=== PATIENT | male | born 1970 | race Caucasian/White ===

== ENCOUNTER → 2020-11-14 08:20 | Outpatient (CLI) | payer BC, SELFPAY ==
--- NOTE | ~2020-11-14 | XR_ITS ---
EXAMINATION: XR ribs BI 3V w CXR 2V EXAM DATE: 11/14/2020 08:33 INDICATION: Twisted, sneezed, felt rib pain on left side. Cough. TECHNIQUE: Frontal projection of the upper left ribs, frontal projection of the lower left ribs, obli que projection of the left ribs. Frontal projection of the upper right ribs, frontal projection of t he lower right ribs, oblique projection of the right ribs, frontal and lateral chest x-ray(s) for int erpretation. There is no prior study for comparison. FINDINGS: There are no displaced acute rib fractures identified. No confluent consolidation, pneumo thorax or pleural effusion suspected. Cardiomediastinal silhouette is normal. IMPRESSION: Unremarkable rib, chest x-ray exam. Reviewed, dictated and finalized at location [facility]
== END ==
PROVIDERS: PCP Family Medicine; Visit Provider Nurse Practitioner Family
DX: R05 Cough (principal); R10.9 Unspecified abdominal pain
CPT/HCPCS: 71046; 71110

== ENCOUNTER 2021-08-26 00:51 | Day surgery (SDC) | payer BC, SELFPAY ==
[2021-08-19 14:53] VITALS: BMI 28.5
--- NOTE | 2021-08-23 14:33 | PM.HPGS ---
History of Present Illness History of Present Illness Consent: Risks, benefits, and alternatives have been discussed and questions answered. Patient agrees to proceed with procedure. Chief complaint: hx of colon polyps Narrative: Armand Luna is a 50 year old male referred for colon cancer screening Review of Systems Review of Systems: All systems reviewed & are unremarkable except as noted in HPI and below PMFSH Past Medical History Medical History Benign hypertension BMI 28.0-28.9,adult Encounter for screening colonoscopy Gastro-esophageal reflux disease without esophagitis Mixed hyperlipidemia Family History Family History Sibling Family history of diabetes mellitus in first degree relative Family history of type 2 diabetes mellitus Mother Family history of malignant neoplasm of ovary Father Malignant neoplasm of prostate Sibling Diabetes mellitus Social History Social History Smoking packs per day: 1 Smoking cigarettes per day: 20.0 Years smoked: 30 Smoking pack-years: 30.00 Smoking status: Current every day smoker Tobacco type: cigarettes Second hand tobacco smoke exposure: No Alcohol intake: current Substance use: never Substance use type: does not use Living arrangements: with family Additional occupation/education comments: [employer] Gender identity (if verbalized by the patient): Male Spiritual care concerns: No Meds Home Medications and Allergies Home Medications Medication Instructions Recorded Confirmed Type rosuvastatin 20 mg tablet 20 mg PO DAILY #30 tablet 07/28/21 08/26/21 Rx omeprazole 20 mg capsule,delayed 20 mg PO DAILY #90 cap 08/02/21 08/26/21 Rx release amlodipine 10 mg-benazepril 20 mg See Rx Instructions .ROUTE 08/25/21 08/26/21 Rx capsule .COMPLEX #90 cap Allergies Allergy/AdvReac Type Severity Reaction Status Date / Time No Known Allergies Allergy Verified 08/26/21 08:35 Exam Resp: Auscultation: clear to auscultation bilaterally Cardio: Rate: regular rate Rhythm: regular rhythm GI: GI Palp: Yes Soft to palpation and No Tenderness to palpation present (GI) Assessment and Plan Assessment and plan (1) Encounter for screening colonoscopy: Code(s): Z12.11 - Encounter for screening for malignant neoplasm of colon Status: Acute Assessment and Plan: Colonoscopy with possible biopsy or polypectomy or cautery or injection of substances.
[2021-08-26 08:37] VITALS: BP 124/91; PULSE 110; RESP 18; TEMP 36; O2SAT 98; BMI 28.3
[2021-08-26] MEDS: LACTATED RINGERS 1,000 ML 150 ML IV CONT (08:39)
--- NOTE | 2021-08-26 08:40 | P.PNAN_ITS ---
Anes - Initial Pre Proc Eval Procedure: Operation Date: 08/26/21 09:30 Proposed Procedures p Screening Colonoscopy - Matt Ludwig MD Date/Time: 08/26/21 08:40 Surgeon: Matt Ludwig MD Pre Op Diagnosis: hx of colon polyps Patient Data Age: 50 Gender: M Height: 1.8 m Weight: 92.2 kg Last Vital Signs Temp 36.0 C L 08/26/21 08:37 Pulse 110 H 08/26/21 08:37 Resp 18 08/26/21 08:37 BP 124/91 H 08/26/21 08:37 Pulse Ox 98 08/26/21 08:37 Allergies Allergy/AdvReac Type Severity Reaction Status Date / Time No Known Allergies Allergy Verified 08/26/21 08:35 Home Medications Medication Instructions Recorded Confirmed Type rosuvastatin 20 mg tablet 20 mg PO DAILY #30 tablet 07/28/21 08/26/21 Rx omeprazole 20 mg capsule,delayed 20 mg PO DAILY #90 cap 08/02/21 08/26/21 Rx release amlodipine 10 mg-benazepril 20 mg See Rx Instructions .ROUTE 08/25/21 08/26/21 Rx capsule .COMPLEX #90 cap Patient hx anesthesia problems: none Family hx anesthesia problems: none Results Review: All pre-operative results and documents have been reviewed as part of the pre-operative evaluation. [facility] Past Medical History Medical History Benign hypertension BMI 28.0-28.9,adult Encounter for screening colonoscopy Gastro-esophageal reflux disease without esophagitis Mixed hyperlipidemia Family History Family History Sibling Family history of diabetes mellitus in first degree relative Family history of type 2 diabetes mellitus Mother Family history of malignant neoplasm of ovary Father Malignant neoplasm of prostate Sibling Diabetes mellitus Social History Social History Smoking packs per day: 1 Smoking cigarettes per day: 20.0 Years smoked: 30 Smoking pack-years: 30.00 Smoking status: Current every day smoker Tobacco type: cigarettes Second hand tobacco smoke exposure: No Alcohol intake: current Substance use: never Substance use type: does not use Living arrangements: with family Additional occupation/education comments: [employer] Gender identity (if verbalized by the patient): Male Spiritual care concerns: No Anes - Eval Final PreProcedure Day of Procedure 08/26/21 08:40 Patient weight: overweight Heart: regular rate and rhythm Lungs: decreased breath sounds Airway: Mallampati scale class II Neurological: alert and oriented Last oral intake: >/= 8 hours ASA classification: III Emergent: no Anesthetic plan: proceed Anesthesia type and monitoring: general GIVS and standard monitoring Results Review: All pre-operative results and documents have been reviewed as part of the pre-operative evaluation. Informed Consent: The patient's anesthetic plan and its attendant risks and benefits were discussed with the patient/family/POA. Questions were solicited and answers provided to the satisfaction of the patient/family/POA.
[2021-08-26 09:32] VITALS: BP 98/64; PULSE 105; RESP 23; O2SAT 96
[2021-08-26 09:42] VITALS: BP 107/69; PULSE 94; RESP 24; O2SAT 96
[2021-08-26 09:52] VITALS: BP 126/89; PULSE 91; RESP 18; O2SAT 97
== END 2021-08-26 10:00 | disposition home or self-care (01) ==
PROVIDERS: PCP Family Medicine; Visit Provider Internal Medicine Gastroenterology
PROC: 0DJD8ZZ Inspection of Lower Intestinal Tract, Via Natural or Artificial Opening Endoscopic (ICD-10-PCS; CPT 45378; principal; 2021-08-26 09:30)
DX: Z12.11 Encounter for screening for malignant neoplasm of colon (principal); K63.5 Polyp of colon; I10 Essential (primary) hypertension; K21.9 Gastro-esophageal reflux disease without esophagitis; E78.2 Mixed hyperlipidemia; F17.210 Nicotine dependence, cigarettes, uncomplicated
CPT/HCPCS: 45385; 88305; J2704; J7120

== ENCOUNTER 2023-07-06 15:49 | Outpatient (CLI) | payer BC, SELFPAY ==
--- NOTE | ~2023-07-06 | CT_ITS ---
CT Scan of the Chest without Contrast: Clinical Indication: Lung cancer screening, personal history of nicotine dependence Technique: Contiguous sections were acquired throughout the chest without intravenous contrast. Dose reduction technique was used on this scan by utilizing automated exposure control and iterative recon struction technique. The dose-length product (DLP) was 186.46 mGy-cm. Findings: There is no evidence of any significant mediastinal, hilar or axillary lymphadenopathy. The mediastin al soft tissues appear normal. There is no evidence of pleural or pericardial effusion. 2 mm right upper lobe pulmonary nodule noted (axial image 40). Fissural nodule noted along the right minor fissure (axial image 67). Images through the upper abdomen reveal no abnormalities. Impression: Lung RADS 2: Benign appearance. 12 month follow-up screening CT advised. Reviewed, dictated and finalized at [facility]. Impression: Lung RADS 2: Benign appearance. 12 month follow-up screening CT advised.
== END 2023-07-06 15:50 | disposition home or self-care (01) ==
PROVIDERS: PCP Family Medicine; Visit Provider Nurse Practitioner Family
DX: Z12.2 Encounter for screening for malignant neoplasm of respiratory organs (principal); Z87.891 Personal history of nicotine dependence
CPT/HCPCS: 71271